=== PATIENT | female | born 1955 | race Caucasian/White ===

== ENCOUNTER → 2020-06-15 | Outpatient (CLI) | payer MEDICARE, BC | LOC: MAMO 14:47 | DX: Z12.31 Encounter for screening mammogram for malignant neoplasm of breast (principal) | CPT/HCPCS: 77063; 77067 ==

== ENCOUNTER → 2020-06-16 | Outpatient (CLI) | payer MEDICARE, BC | LOC: KOH-I 12:19 | DX: Z12.2 Encounter for screening for malignant neoplasm of respiratory organs (principal); R91.8 Other nonspecific abnormal finding of lung field; Z87.891 Personal history of nicotine dependence | CPT/HCPCS: 71271 ==

== ENCOUNTER → 2020-07-18 | Outpatient (CLI) | payer MEDICARE, BC ==
[~2020-07-18] VITALS: Ht 170.2 cm; Wt 77.1 kg
== END ==
LOC: OPSV 08:54
DX: M81.0 Age-related osteoporosis without current pathological fracture (principal)
CPT/HCPCS: 96365; J3489

== ENCOUNTER → 2021-10-10 | Outpatient (CLI) | payer MEDICARE, BC | LOC: KOH-I 14:23 | DX: M47.816 Spondylosis without myelopathy or radiculopathy, lumbar region (principal); M51.36 Other intervertebral disc degeneration, lumbar region; M25.78 Osteophyte, vertebrae | CPT/HCPCS: 72148 ==

== ENCOUNTER → 2021-10-17 | Outpatient (CLI) | payer MEDICARE, BC | LOC: EMI 13:00 | DX: M54.2 Cervicalgia (principal); G89.29 Other chronic pain; M47.812 Spondylosis without myelopathy or radiculopathy, cervical region; M48.02 Spinal stenosis, cervical region; M48.03 Spinal stenosis, cervicothoracic region; M25.78 Osteophyte, vertebrae | CPT/HCPCS: 72141 ==

== ENCOUNTER → 2021-11-09 | Outpatient (CLI) | payer MEDICARE, BC | LOC: OPSV 13:00 | DX: M81.0 Age-related osteoporosis without current pathological fracture (principal) | CPT/HCPCS: 96365; J3489 ==

== ENCOUNTER → 2021-11-26 | Outpatient (CLI) | payer MEDICARE, BC | LOC: KOH-I 11:15 | DX: M47.814 Spondylosis without myelopathy or radiculopathy, thoracic region (principal); M51.34 Other intervertebral disc degeneration, thoracic region; M48.04 Spinal stenosis, thoracic region | CPT/HCPCS: 72146 ==

== ENCOUNTER → 2021-12-27 | Outpatient (CLI) | payer MEDICARE, BC | LOC: KOH-I 10:55 | DX: Z87.891 Personal history of nicotine dependence (principal); I25.10 Atherosclerotic heart disease of native coronary artery without angina pectoris | CPT/HCPCS: 71271 ==

== ENCOUNTER → 2022-01-01 | Outpatient (CLI) | payer MEDICARE, BC | LOC: MAMO 13:30 | DX: Z12.31 Encounter for screening mammogram for malignant neoplasm of breast (principal) | CPT/HCPCS: 77063; 77067 ==